=== PATIENT | male | born 1950 | race Caucasian/White ===

== ENCOUNTER 2021-03-17 08:05 | Day surgery (SDC) | payer OTHER, SELFPAY ==
[~2021-03-17] VITALS: Ht 160 cm; Wt 90.3 kg
[~2021-03-17 08:05] MED LIST: GLYBURIDE; LISI20TA; METF-380; NAPR-690
[2021-03-17] MEDS ORDERED: CLINDAMYCIN 900 MG in D5W 100 ML IV ONE (09:15)
[2021-03-17] MEDS ORDERED: SEVOFLURANE 15 MIN GAS INH ONE (10:56)
[2021-03-17] MEDS ORDERED: PROPOFOL 200MG/ 20ML VIAL (DIPRIVAN) IV ONE (10:56)
[2021-03-17] MEDS ORDERED: fentaNYL CITRATE/PF 100 MCG/2 ML AMP IVP ONE (10:56)
[2021-03-17] MEDS ORDERED: BUPIVACAINE /PF 0.25% 30 ML VIAL INJ ONE (10:56)
[2021-03-17] MEDS ORDERED: MIDAZOLAM HCL 5 MG/5 ML VIAL IVP ONE (10:56)
[2021-03-17] MEDS ORDERED: LR 1,000 ML IV.SOLN IV ONE (10:56)
[2021-03-17] MEDS ORDERED: LIDOCAINE 2%, 20 ML MDV INJ ONE (10:56)
[2021-03-17] MEDS ORDERED: ONDANSETRON HCL 4 MG/2 ML VIAL IVP ONE (10:56)
[2021-03-17] MEDS ORDERED: MIDAZOLAM HCL 2 MG/2 ML VIAL (VERSED) IVP PRN (11:45)
[2021-03-17] MEDS ORDERED: hydrALAZINE HCL 20 MG/ML VIAL IVP PRN (11:45)
[2021-03-17] MEDS ORDERED: METOCLOPRAMIDE HCL 10 MG/2 ML VIAL IVP PRN (11:45)
[2021-03-17] MEDS ORDERED: MEPERIDINE HCL/PF 25 MG/ML DISP.SYRIN IVP PRN (11:45)
[2021-03-17] MEDS ORDERED: ONDANSETRON HCL 4 MG/2 ML VIAL IVP PRN (11:45)
[2021-03-17] MEDS ORDERED: LR 1,000 ML IV SCH (11:45)
[2021-03-17] MEDS ORDERED: HYDROmorphone 1 MG/ML INJ. CARTRIDGE IVP PRN ×3 (11:45→12:30)
[2021-03-17] MEDS ORDERED: HYDROcodone/ACETAMIN 5-325 MG TAB (NORCO/ VICODIN) PO PRN ×2 (12:30)
[2021-03-17] MEDS ORDERED: D5/0.45 NS 1,000 ML IV SCH (12:30)
[2021-03-17 13:35] VITALS: BP_SYST 135
== END 2021-03-17 14:20 | disposition home or self-care (01) ==
LOC: SDS 08:05 → SMU 08:08 → EDSTATUS 10:20 → SDS 14:20
PROVIDERS: ATTEND Colon & Rectal Surgery
DX: C43.61 Malignant melanoma of right upper limb, including shoulder (principal); I25.10 Atherosclerotic heart disease of native coronary artery without angina pectoris; Z95.1 Presence of aortocoronary bypass graft; K21.9 Gastro-esophageal reflux disease without esophagitis; E11.51 Type 2 diabetes mellitus with diabetic peripheral angiopathy without gangrene; F03.90 Unspecified dementia, unspecified severity, without behavioral disturbance, psychotic disturbance, mood disturbance, and anxiety; G47.33 Obstructive sleep apnea (adult) (pediatric); E78.5 Hyperlipidemia, unspecified; I11.0 Hypertensive heart disease with heart failure; I50.9 Heart failure, unspecified; I73.9 Peripheral vascular disease, unspecified; Z79.01 Long term (current) use of anticoagulants; Z79.82 Long term (current) use of aspirin; Z79.899 Other long term (current) drug therapy; Z20.822 Contact with and (suspected) exposure to COVID-19
CPT/HCPCS: 11606; 38525; 78195; 82962; 88305; 88307; 88341; 88342; A9541; J2001; J2250; J2405; J2704; J3010; J3490 ×2; J7060; J7120; U0003